=== PATIENT | female | born 1935 | race Asian ===

== ENCOUNTER 2020-08-25 11:59 | Emergency (ER) | payer OTHER ==
[~2020-08-25] VITALS: Ht 160 cm; Wt 49.9 kg
[~2020-08-25 11:59] MED LIST: ADULT LOW DOSE81 MG PO; ASPIRIN325 PO; HYDROXYCHLOROQ200 M1 PO; LISINOPRIL5 MG PO; LOPRESSOR 50 MG50 M1 PO; MELOXICAM7.5 MG PO; MICARDIS40 MG PO; NITROGLYCERIN0.4 MG SL; OMEPRAZOLE PO; OMEPRAZOLE40 MG PO; PLAVIX 75 MG TA75 MG PO; PREMARIN0.3 MG PO; TOPROL XL25 MG PO; TOPROL XL50 MG PO; ZOCOR 20 MG TAB20 M1 PO
[2020-08-25 12:48] LABS: URINE BILIRUBIN NEGATIVE (Negative); URINE BLOOD NEGATIVE (Negative); URINE CLARITY CLEAR; URINE COLOR YELLOW; URINE GLUCOSE-RANDOM* NEGATIVE (Negative); URINE KETONES NEGATIVE (Negative); URINE LEUKOCYTES-REFLEX NEGATIVE (Negative); URINE NITRITE-REFLEX NEGATIVE (Negative); URINE PROTEIN (DIPSTICK) NEGATIVE (Negative); URINE UROBILINOGEN 0.2 E.U./dl (0.2-1.0)
[2020-08-25 12:51] LABS: ABSOLUTE NEUTROPHILS 3.5 thou/uL (1.4-8.2); BASOPHILS 0.3 % (0.0-2.0); EOSINOPHILS 1.2 % (0.0-3.0); HEMATOCRIT 31.5 % (37.0-47.0); HEMOGLOBIN 10.7 gm/dL (12.0-15.0); LYMPHOCYTES 26.7 % (24.0-44.0); MCH 32.7 pg (26.0-34.0); MCHC 33.9 g/dL (28.0-37.0); MCV 96.5 fL (80.0-100.0); MONOCYTES 7.6 % (1.0-8.0); PLATELET COUNT 211 thou/uL (150-400); POLYS 64.2 % (36.0-66.0); RBC 3.26 mil/uL (4.20-5.00); WBC 5.4 thou/uL (4.0-11.0)
[2020-08-25 13:06] LABS: ANION GAP 8 mmol/L (7-16); BUN 14 mg/dL (7-18); CALCIUM 9.1 mg/dL (8.5-10.1); CHLORIDE 102 mmol/L (98-107); CO2 26 mmol/L (21-32); GLUCOSE 118 mg/dL (74-106); POTASSIUM 3.9 mmol/L (3.5-5.1); SODIUM 136 mmol/L (136-145)
[2020-08-25 13:23] LABS: ALBUMIN 3.5 g/dL (3.4-5.0); LIPASE 63 U/L (73-393); SGOT 22 U/L (15-37); SGPT 24 U/L (14-59); TOTAL BILIRUBIN 0.8 mg/dL (0.2-1.0); TOTAL PROTEIN 6.6 g/dL (6.4-8.2); TROPONIN-I <0.06 ng/mL (<0.06)
[2020-08-25] MEDS ORDERED: LIPITOR40 MG PO (13:41)
[2020-08-25] MEDS ORDERED: COZAAR 25 MG TA25 M1 PO (13:41)
[2020-08-25] MEDS ORDERED: ISOSORBIDE MON120 MG PO (13:41)
[2020-08-25] MEDS ORDERED: CHILDREN'S ASPI81 M1 PO (13:41)
[2020-08-25] MEDS ORDERED: FOSAMAX 70 MG T70 MG PO (13:42)
[2020-08-25] MEDS ORDERED: HYDROCODON-ACE1 EAC7 PO (13:42)
[2020-08-25] MEDS ORDERED: OMEPRAZOLE40 MG PO (13:42)
[2020-08-25] MEDS ORDERED: ONDANSETRON HCL4 M2 PO (16:08)
[2020-08-25] MEDS ORDERED: MOTION RELIEF25 MG PO (16:08)
[2020-08-25 16:24] VITALS: BP 152/80
--- NOTE | 2020-08-27 07:24 | EKG ---
[address] [address] [place] [address] ELECTROCARDIOGRAM REPORT Name: JACKSON KUMAR Room #: [facility]#: [id number] Admission: 08/25/20 Attend Phys: Discharge: 08/25/20 Date of : 39 Report #: [id number] [facility] ED Test Date: 2020-08-25 Test Time: 12:06:21 Pat Name: JACKSON KUMAR Department: Room: Gender: F Senior [employer]: GUY : 1935 Requested By: Ana Arellano Order Number: [id number] MD: Sanjeev Salmon Measurements Intervals [place] Rate: 57 P: 24 RI: 223 QRS: -58 QRSD: 187 T: 113 QT: 552 QTc: 538 Interpretive Statements Sinus rhythm Probable left atrial enlargement Left bundle branch block Compared to ECG 01/01/2010 12:06:30 Left bundle-branch block now present Sinus bradycardia no longer present T-wave abnormality no longer present Poor R-wave progression no longer present Electronically Signed On 08-27-2020 7:24:14 [employer] by Sanjeev Salmon [email or web address] <ELECTRONICALLY SIGNED> By: Sanjeev Salmon MD, [facility] 08/27/20 0724 1206 [id number] Sanjeev Salmon MD, [facility] /EPI
== END 2020-08-25 16:24 | disposition home or self-care (01) ==
LOC: ER 11:59
PROVIDERS: Physician Assistant
DX: R42 Dizziness and giddiness (principal); R11.0 Nausea; I10 Essential (primary) hypertension; E78.5 Hyperlipidemia, unspecified; Z79.01 Long term (current) use of anticoagulants; Z79.82 Long term (current) use of aspirin; Z79.899 Other long term (current) drug therapy; Z88.0 Allergy status to penicillin; Z88.2 Allergy status to sulfonamides